=== PATIENT | female | born 1990 | race Caucasian/White ===

== ENCOUNTER 2017-12-15 09:49 | Inpatient (IN) | payer MEDICAID ==
--- NOTE | 2017-12-15 11:03 | HP ---
General Information - Reason for Visit Rupture of membranes at term, clear fluid - General Information Maternal Age: 27 Grav: 1 Para: 0 SAB: 0 IEA: 0 Estimated Due Date: 12/27/17 Determined By: LMP Gestational Age in Weeks/Days: 38-2/7 Maternal Blood Type and Rh: O Positive - Results this Serology/RPR Result: Non-Reactive Rubella Result: Immune HBsAg Result: Negative HIV Result: Negative GBS Culture Result: Negative Past Medical History Delivery History: See Records Delivery History Comment: primip Pertinent Past Medical History: See Records Past Medical History Comment: Hx rheumatoid arthritis - stopped hydroxychloraquine with Hypothyroid on replacement Hx of migraine Pertinent Past Surgical History: None Pertinent Family History: See Records Family History Comment: PGM: Breast cancer PGF: Parkinsons, HTN, DM. . Unknown causes MGF: . Pancreatic cancer - Antepartal Records Antepartal Records: Reviewed, Uncomplicated Review of Systems Constitutional: Comfortable CV Complaint: No Respiratory: Shortness of Breath: No Gastrointestinal: No Nausea/Vomiting, Normal Bowel Movement Genitourinary: Leaking Fluid, No Dysuria, No Bleeding Musculoskeletal: No Complaint, Contractions - described as "dull and irregular" . No strong UCs Neurological: No Headache, No Visual Changes Movement: Normal Exam Allergies/Adverse Reactions: Allergies duloxetine [From Cymbalta] Allergy (Verified 12/15/17 10:56) Rash Sulfa (Sulfonamide Antibiotics) Allergy (Verified 12/15/17 10:56) Rash BP 122/81 HR 90 RR 18 T 97.7 spO2 98% - Measurements Height: 5 ft 5 in Weight: 264 lb Weight in lbs: [id number] Body Mass Index (BMI): 43.9 Pre- Weight: 242 lb Weight Gained This : 22 lbs and 0 ozs - Exam Breast: Breast Exam Deferred CVA: No CVA Tenderness Extremities: No Edema Heart: Normal Rhythm/Heart Sounds HEENT: No Significant Findings Lungs: Clear Bilaterally Rectal: Rectal Exam Deferred Reflexes: DTR 2+ Thyroid: No Thyromegaly - Abdominal Exam Abdomen Exam: Non-Tender, Fundal Height Consistent with Dates - Ultrasound/Biophysical Profile Ultrasound Status: Not Done Targeted Exam Findings See L&D Outpatient Visit Provider Note for Findings: N/A Estimated Weight: 7lbs Cervical Exam: 2cm Effacement: 100% Station: 0 Presenting Part: Vertex Membrane Status: SROM Amniotic Fluid Evaluation: Gross Rupture, Clear Sterile Speculum Exam: Not done Bleeding/Discharge: None EFM Findings - External Monitor Findings Baseline Heart Rate: 140 External Monitor Findings: Accelerations Present, No Pattern of Variable or Late Decelerations, Variability Moderate, Baseline Stable External Monitor Findings Comment: No evidence of metabolic acidemia Contractions: Irregular Assessment/Plan - Assessment IUP at 38-2/7 with SROM, clear fluid Not in active labor No evidence of metabolic acidemia - Obstetrical Risk Factors Obstetrical Risk Factors: Obesity - Plan Plan: Observe - Pt with strong preference for expectant mgmt x 10 hours. Will consider augmentation vs. IOL after that Plan Comment: Admit. Monitor per protocol. Consider augmentation vs. IOL PRN after 10 hours ( 1500) of rupture. Dr. Guaman aware of pt presence and condition - Date/Time of Admission Date of Admission: 12/15/17 Time of Admission: 10:55
[2017-12-15] MEDS ORDERED: Oxytocin in LR* 20 UNITS/1,000 ML BAG IVPB SCH ×2 (15:00→22:00)
[2017-12-15] MEDS ORDERED: Oxytocin in LR* 20 UNITS/1,000 ML BAG IVPB ONE (15:04)
--- NOTE | 2017-12-15 15:05 | PN ---
Progress Note - Progress Note Date of Service: 12/15/17 Note: S: Pt reports after walking some mild UCs but nothing strong or regular. Ready to discuss recommendations for augmentation O: BP 115/80 HR 90 T 99.5 FHT 140bpm. Moderate variability. +Accels. No decels. UCs q 2-7 VE deferred in presence of rupture, clear fluid on carolyn pad A: IUP at 38-2/7 with PROM x 10 hours not in active labor No evidence of metabolic acidemia P: PARQ augmentation with IV pitocin. Pt and FOB agree.
[2017-12-15 16:24] LABS: ABS Basophils 0 10^3/ul (0-0.2); ABS Eosinophils 0.1 10^3/ul (0-0.6); ABS Lymphocytes 1.8 10^3/ul (1.0-4.8); ABS Monocytes 0.6 10^3/ul (0-0.8); ABS Neutrophils 7.5 10^3/ul (1.5-7.7); ABS Nucleated RBC 0 10^3/ul; Eosinophil % 0.6 % (0-6); Hematocrit 38 % (35-47); Hemoglobin 12.3 g/dl (12.0-16.0); Lymphocyte % 18.2 % (25-47); Mean Corpuscular HGB Conc 33 g/dl (31-36); Mean Corpuscular Hemoglobin 27 pg (27-31); Mean Corpuscular Volume 84 fL (80-97); Mean Platelet Volume 9.1 um3 (7.4-10.4); Nucleated Red Blood Cells % 0.1; Platelet Count 231 10^3/ul (150-450); Red Blood Count 4.52 10^6/ul (4.00-5.40); Red Cell Distribution Width 16 % (10.5-15)
--- NOTE | 2017-12-15 18:08 | PN ---
Progress Note - Progress Note Date of Service: 12/15/17 Note: S: Pt increasingly uncomfortable. Requesting labor epidural O: BP 119/85 HR 81 T 97.5 FHT: 135bpm. Moderate variability. +Accels. No decels UCs q 2-4 IV pit at 6mu/min VE: 3-4/100%/vtx 0 station, clear fluid A: IUP at 38-2/7 in early active labor No evidence of metabolic acidemia P: Anesthesia paged for consult.
[2017-12-15] MEDS ORDERED: OBEPIDURAL* 250 ML EPIDURAL ONE (18:11)
[2017-12-15] MEDS ORDERED: Famotidine TAB* 20 MG PO PRN (19:54)
[2017-12-15] MEDS ORDERED: EPHEDrine (Pressors)* 50 MG/ML VIAL IV PUSH PRN ×2 (19:54)
[2017-12-15] MEDS ORDERED: Phenylephrine IV* 40 MCG/ML 10 ML SYRINGE IV PUSH PRN ×2 (19:54)
[2017-12-15] MEDS ORDERED: Sodium Citrate/Citric Acid* 15 ML UDC PO PRN (19:54)
[2017-12-15] MEDS ORDERED: OBEPIDURAL* 250 ML EPIDURAL SCH (20:00)
[2017-12-15] MEDS ORDERED: Acetaminophen TAB* 325 MG PO PRN (21:47)
[2017-12-15] MEDS ORDERED: Witch Hazel PAD* JAR TOPICAL PRN (21:47)
[2017-12-15] MEDS ORDERED: Dibucaine 1% 28.35 GM TUBE PR PRN (21:47)
[2017-12-15] MEDS ORDERED: Glycerin ADULT SUPP PR PRN (21:47)
--- NOTE | 2017-12-15 21:52 | PROCNOTE ---
[facility] OB: Delivery Note - Delivery A Date of : 12/15/17 Time of : 20:55 [place] Sex: Female Score 1 Minute: 9 Score 5 Minutes: 9 Gestational Age in Weeks and Days at Delivery: 38 Weeks and 2 Days Delivery Method: Spontaneous Vaginal Labor: Spontaneous Did Patient attempt ?: N/A, No Previous Amniotic Fluid: Clear Anesthesia/Analgesia: CEI for Labor Delivered By: Elton Cordero - Nursery Level of Nursery: Regular/Bedside - Perineum Perineal Injury: Vaginal Laceration, 2nd Degree Perineal Repair: By Delivering Practioner - Events Delivery Events of Note: Pitocin During Labor - Additional Delivery Notes Additional Delivery Notes: Pt admitted with premature rupture of membranes at term, clear fluid. IV pitocin augmentation started with rapid progression to complete while sitting up for epidural placement. Length of active phase 5 hours, 25 min. Pushed x 1 hour, 3 min. liveborn female. Slow, controlled delivery of head. OA to JEREMY. Shoulders followed easily. [place] vigorous with spontaneous cry. HR>110bpm. Cord clamped x 2 and cut by FOB when pulsations ceased. Spontaneous delivery intact placenta. Membranes complete. Fundus firmed to massage with IV pitocin infusing. Repair of second degree laceration as above. EBL 400mL. At time of note mother and in stable condition. Planning to breast feed.
[2017-12-15] MEDS: Ibuprofen TAB* 600 MG PO PRN (23:41)
[2017-12-16 06:57] LABS: ABS Basophils 0 10^3/ul (0-0.2); ABS Eosinophils 0 10^3/ul (0-0.6); ABS Lymphocytes 1.9 10^3/ul (1.0-4.8); ABS Monocytes 0.8 10^3/ul (0-0.8); ABS Neutrophils 8.9 10^3/ul (1.5-7.7); ABS Nucleated RBC 0 10^3/ul; Eosinophil % 0.2 % (0-6); Hematocrit 29 % (35-47); Hemoglobin 9.9 g/dl (12.0-16.0); Lymphocyte % 16.4 % (25-47); Mean Corpuscular HGB Conc 34 g/dl (31-36); Mean Corpuscular Hemoglobin 28 pg (27-31); Mean Corpuscular Volume 81 fL (80-97); Mean Platelet Volume 9.1 um3 (7.4-10.4); Nucleated Red Blood Cells % 0; Platelet Count 216 10^3/ul (150-450); Red Blood Count 3.56 10^6/ul (4.00-5.40); Red Cell Distribution Width 16 % (10.5-15); White Blood Count 11.6 10^3/ul (3.5-10.8)
[2017-12-16] MEDS: Ibuprofen TAB* 600 MG PO PRN ×3 (07:53→21:11)
--- NOTE | 2017-12-16 08:03 | PTEDU ---
Patient Name: JULIANO SKY ASYAJULIANO GARCIA selected video: Follow Me Mum: [facility] [place] [facility] to view on 2017 at 8:03:[address] [id number]
[2017-12-16] MEDS ORDERED: Simethicone TAB* 80 MG TAB.CHEW PO SCH (08:30)
[2017-12-16] MEDS: Levothyroxine TAB* 50 MCG TAB PO SCH (08:33)
[2017-12-16] MEDS: Docusate CAP* 100 MG PO SCH ×3 (08:33→21:11)
[2017-12-16] MEDS: Ferrous Gluconate TAB* 324 MG TAB PO SCH ×2 (08:34→21:12)
[2017-12-17] MEDS: Ibuprofen TAB* 600 MG PO PRN (06:12)
[2017-12-17 09:15] VITALS: BP 121/74
[2017-12-17] MEDS: Ferrous Gluconate TAB* 324 MG TAB PO SCH (09:37)
[2017-12-17] MEDS: Docusate CAP* 100 MG PO SCH (09:37)
[2017-12-17] MEDS: Levothyroxine TAB* 50 MCG TAB PO SCH (09:48)
== END 2017-12-17 11:53 | disposition home or self-care (01) | DRG 560 ==
LOC: MCHOBOUT 09:49 → MCHOB 11:01 → MCHOBOUT 11:28 → MCHOB 11:29
PROVIDERS: ADMIT Midwife; ATTEND Midwife
PROC: 10E0XZZ Delivery of Products of Conception, External Approach (ICD-10-PCS; principal; 2017-12-15)
PROC: 0KQM0ZZ Repair Perineum Muscle, Open Approach (ICD-10-PCS; 2017-12-15)
PROC: 4A1HXCZ Monitoring of Products of Conception, Cardiac Rate, External Approach (ICD-10-PCS; 2017-12-15)
DX: O42.02 Full-term premature rupture of membranes, onset of labor within 24 hours of rupture (principal); Z68.41 Body mass index [BMI] 40.0-44.9, adult; O99.214 Obesity complicating childbirth; O99.284 Endocrine, nutritional and metabolic diseases complicating childbirth; E03.9 Hypothyroidism, unspecified; Z3A.38 38 weeks gestation of pregnancy; Z37.0 Single live birth; Z88.8 Allergy status to other drugs, medicaments and biological substances; Z88.2 Allergy status to sulfonamides; O90.81 Anemia of the puerperium; O70.1 Second degree perineal laceration during delivery
CPT/HCPCS: 36415; 84112; 85025; 86850; 86900; 86901; A9270-GY

== ENCOUNTER 2018-08-29 17:37 | Emergency (ER) | payer MEDICAID, OTHER ==
--- NOTE | 2018-08-29 18:23 | UC ---
Abdominal Pain Female HPI - HPI Summary HPI Summary: Patient presents to urgent care for evaluation of bright red blood per rectum. Patient states around 3:00 she had a bowel movement of some hard stool. Patient states after this there was blood the toilet after this. no clots. BRB. Patient also had blood on the toilet tissue. Patient states approximately 30 minutes later she went back to bathroom and checked again there was blood on the toilet tissue but not as much. Patient states she checked an hour later again she went to the bathroom and wiped nose little bit of blood. No blood in her underwear. Patient is not wearing protective liner. Patient denies abdominal pain. No nausea or vomiting. No fevers or chills. No history of similar. Patient states she does have hemorrhoids that was substantial after she gave to her daughter 9 months ago. Patient had a negative colonoscopy approximately 6 years ago for some nondescript abdominal pain. Patient does not have a history of diverticulitis/oses. Patient does not have any family history colon cancer. Patient states she's not on anticoagulants and her last period was approximately 3 weeks ago. Patient's medications reviewed this visit. Patient without lightheadedness or chest pain or shortness of breath. No anticoagulants Medications reviewed this visit - History of Current Complaint Chief Complaint: UCGI Stated Complaint: HEAVY RECTAL BLEEDING Time Seen by Provider: 08/29/18 18:02 Hx Obtained From: Patient Hx Last Menstrual Period: 08/23/18 Onset/Duration: Sudden Onset Severity Currently: None Pain Intensity: 0 Allergies/Adverse Reactions: Allergies Allergy/AdvReac Type Severity Reaction Status Date / Time duloxetine [From Cymbalta] Allergy Rash Verified 08/29/18 17:51 Sulfa (Sulfonamide Allergy Rash Verified 08/29/18 17:51 Antibiotics) Home Medications: Home Medications Hydroxychloroquine TAB* [Plaquenil TAB*] 200 mg PO DAILY 08/29/18 [History Confirmed 08/29/18] PMH/Surg Hx/FS Hx/Imm Hx Previously Healthy: Yes GI/ History: Other - hemorrhoids with - Surgical History Surgical History: None - Family History Known Family History: Positive: Other - no colon cancer, GI bleed, Non- Contributory - Social History Lives: With Family Alcohol Use: None Substance Use Type: None Smoking Status (MU): Never Smoked Tobacco Have You Smoked in the Last Year: No - Immunization History Most Recent Influenza Vaccination: 2017 season Most Recent Pneumonia Vaccination: never Review of Systems All Other Systems Reviewed And Are Negative: Yes Constitutional: Positive: Negative Skin: Positive: Negative Eyes: Positive: Negative ENT: Positive: Negative Respiratory: Positive: Negative Cardiovascular: Positive: Negative Gastrointestinal: Positive: Other - BRBPR with BM. Negative: Abdominal Pain, Vomiting, Diarrhea, Nausea Is Patient Immunocompromised?: No Physical Exam - Summary Physical Exam Summary: Vital Signs Reviewed: Yes A+Ox3, no distress Eyes: Conjunctiva Clear, OSCAR. EOM intact and full ENT: Hearing grossly normal TM x 2 clear, mmoist, uvula midline, no exudate, no erythema Neck: Positive: Supple Respiratory: Positive: No respiratory distress, No accessory muscle use + CTA throughout no w/r Cardiovascular: RRR nl s1, s2 no m/r CBT <2 sec abd soft + BS nt/nd no guarding, no distension rectal exam: TOSHA maddox - Pt with 3 external hemorrhoid - at 3 o'clock with scant blood. No active bleeding, not thrombosed. digital exam pt with scant blood at hemorrhoid. Musculoskeletal Exam: RAMIREZ x 4 without difficulty Strength Intact, ROM Intact Neurological: Positive: Alert, + sensation throughout Psychological: Positive: Normal Response To Family Skin: Positive: no rash, no ecchymosis Triage Information Reviewed: Yes Vital Signs: Initial Vital Signs Temp 99.2 F 08/29/18 17:46 Pulse 112 08/29/18 17:46 Resp 18 08/29/18 17:46 BP 158/104 08/29/18 17:46 Pulse Ox 99 08/29/18 17:46 Abd Pain Female Course/Dx - Course Course Of Treatment: Pt presents with BRBPR follwing a BM with mid firm stool. Following BM pt with BRB. Pt with 2 more episodes of decreasing blood x 2. Pt without abdominal pain. No other complaints VSS Abd soft + BS no guarding, no rebound Exam with external hemorrhoid one with apparent recent bleed- not thrombosed - non tender Suspect this is cause. I had long coversation with pt regarding s./s to monitor, strict return precautions pt's initial BP high - markedly improved at discharge PT reassured p[t and comfortable and in agreement with plan - Differential Dx/Diagnosis Provider Diagnosis: Bright red blood per rectum, Hemorrhoid Discharge - Sign-Out/Discharge Documenting (check all that apply): Patient Departure All imaging exams completed and their final reports reviewed: No Studies - Discharge Plan Condition: Stable Disposition: HOME Patient Education Materials: Hemorrhoids (ED), Rectal Bleeding (ED) Referrals: Bianca Costa NP [Primary Care Provider] - Additional Instructions: The doctor that evaluated you thinks your bleeding was from a hemorrhoid. IT is recommended you use a stool softner if you are experiencing hard stools to prevent straining At this time, the doctor that evaluated you does not think you need to go to the emergency department for further evaluation. If you develop increased or recurrent bleeding, abdomninal pain, vomiting, if stools become dark or black or your have ANY other concerns it is recommended you go to the emergency department for further evaluation and treatment contact your doctor to schedule a follow-up appointment this week for a recheck - Billing Disposition and Condition Condition: STABLE Disposition: Home
[2018-08-29 18:57] VITALS: BP 114/74
== END 2018-08-29 19:07 | disposition home or self-care (01) ==
LOC: UCEAST 17:37
DX: K62.5 Hemorrhage of anus and rectum (principal); K64.4 Residual hemorrhoidal skin tags; Z88.2 Allergy status to sulfonamides; Z88.8 Allergy status to other drugs, medicaments and biological substances
CPT/HCPCS: 99211; G0463

== ENCOUNTER 2020-06-24 08:02 | Inpatient (IN) ==
[2020-06-24] MEDS ORDERED: Lactated Ringers 1000 ml BAG 1,000 ML IV ONE ×2 (09:07→16:03)
[2020-06-24] MEDS ORDERED: Buffered Lidocaine 1% SYRIN 1 ml INTRADERM ONE (09:07)
[2020-06-24] MEDS ORDERED: Oxytocin in LR 20 UNITS/1,000 ML BAG IVPB SCH ×2 (10:00→23:00)
[2020-06-24] MEDS: Lactated Ringers 1000 ml BAG 1,000 ML IV SCH ×2 (10:28→16:05)
[2020-06-24 10:41] LABS: ABS Eosinophils 0.1 10^3/ul (0-0.6); ABS Lymphocytes 1.7 10^3/ul (1.0-4.8); ABS Monocytes 0.5 10^3/ul (0-0.8); ABS Neutrophils 5.9 10^3/ul (1.5-7.7); Eosinophil % 0.6 %; Hematocrit 36 % (35-47); Hemoglobin 12.1 g/dL (12.0-16.0); Mean Corpuscular HGB Conc 34 g/dL (31-36); Mean Corpuscular Hemoglobin 27 pg (27-31); Mean Corpuscular Volume 80 fL (80-97); Mean Platelet Volume 9.4 fL (7.4-10.4); Platelet Count 260 10^3/uL (150-450); Red Cell Distribution Width 16 % (10-15); White Blood Count 8.2 10^3/uL (3.5-10.8)
[2020-06-24 11:19] LABS: Urine Benzodiazepine Screen None Detected (None Detect); Urine Cannabinoids Screen None Detected (None Detect); Urine Opiates Screen None Detected (None Detect)
[2020-06-24] MEDS ORDERED: OBEPIDURAL 250 ML EPIDURAL ONE (15:38)
[2020-06-24] MEDS ORDERED: Phenylephrine 40 mcg/mL 10mL (400mcg) SYRINGE IV PUSH PRN ×2 (16:03)
[2020-06-24] MEDS ORDERED: Sodium Citrate/Citric Acid LIQ 15 ML UDC PO PRN (16:03)
[2020-06-24] MEDS ORDERED: OBEPIDURAL 250 ML EPIDURAL SCH (17:00)
[2020-06-24] MEDS ORDERED: Lactated Ringers 1000 ml BAG 1,000 ML IV SCH (17:00)
[2020-06-24] MEDS ORDERED: Glycerin ADULT 2.4 gm SUPP PR PRN (22:09)
[2020-06-24] MEDS ORDERED: Witch Hazel PAD JAR TOPICAL PRN (22:09)
[2020-06-24] MEDS ORDERED: Dibucaine 1% OINT 28.35 GM TUBE PR PRN (22:09)
[2020-06-24] MEDS ORDERED: Lidocaine 1% MPF 5 ML VIAL ONE (22:21)
[2020-06-25 06:48] LABS: ABS Eosinophils 0.1 10^3/ul (0-0.6); ABS Lymphocytes 2.1 10^3/ul (1.0-4.8); ABS Monocytes 0.7 10^3/ul (0-0.8); ABS Neutrophils 7.4 10^3/ul (1.5-7.7); Eosinophil % 0.6 %; Hematocrit 32 % (35-47); Hemoglobin 10.6 g/dL (12.0-16.0); Lymphocyte % 20.6 %; Mean Corpuscular HGB Conc 34 g/dL (31-36); Mean Corpuscular Hemoglobin 27 pg (27-31); Mean Corpuscular Volume 81 fL (80-97); Mean Platelet Volume 8.9 fL (7.4-10.4); Platelet Count 202 10^3/uL (150-450); Red Blood Count 3.92 10^6 /uL (3.70-4.87); Red Cell Distribution Width 16 % (10-15); White Blood Count 10.4 10^3/uL (3.5-10.8)
[2020-06-26 07:16] VITALS: BP 138/78
== END 2020-06-26 17:05 | disposition home or self-care (01) | DRG 560 ==
LOC: MCHOBOUT 08:02 → MCHOB 08:38
PROVIDERS: ADMIT Midwife; ATTEND Midwife